=== PATIENT | male | born 1945 | race Caucasian/White ===

== ENCOUNTER 2016-11-09 08:15 | Inpatient (IN) | payer MEDICARE, OTHER ==
--- NOTE | 2016-11-09 08:27 | Emergency Department Record ---
History of Present Illness - General Stated Complaint: WEAKNESS Time Seen by Provider: 11/09/16 08:18 Source: Patient, EMS Mode of Arrival: Stretcher Limitations: Altered mental status - History of Present Illness Initial comments: 71 yo male presents to ED with a CC of weakness this morning. Patient was found laying in his mobile home this morning, unable to get up. EMS per family reports fevers, chills, and recent illness. Patient was seen yesterday in [facility] for "sore throat", diagnosed with Bronchitis. Patient appears mildly confused on examination, history is limited. Patient reports that he is here for a "blood clot", diagnosed with DVT 6 months ago and on Coumadin per EMS. -: Unknown Improves with: None Worsens with: None - [place] Coma Scale Eye Response: (4) Open spontaneously Motor Response: (6) Obeys commands Verbal Response: (4) Confused conversation [place] Total: 14 - Related Data Home Medications Medication Instructions Recorded Confirmed Last Taken Chlordiazepoxide HCl [Librium] 10 mg PO DAILY 04/05/16 11/09/16 Unknown Fenofibrate Nanocrystallized 145 mg PO ASDIR 04/05/16 11/09/16 Unknown [Fenofibrate] Lidocaine Patch [Lidoderm] 1 ea TOP DAILY 04/05/16 11/09/16 Unknown Omeprazole 40 mg PO DAILY 04/05/16 11/09/16 Unknown Oxycodone HCl/Acetaminophen 1 tab PO Q8H PRN 04/05/16 11/09/16 Unknown [Oxycodone/Acetaminophen 10mg/325mg] Quetiapine Fumarate [Seroquel] 100 mg PO QHS 04/05/16 11/09/16 Unknown Ranitidine HCl [Zantac] 300 mg PO DAILY 04/05/16 11/09/16 Unknown [place]-3 Fatty Acids [Fish Oil] 300 mg PO QD cap 11/08/16 11/09/16 Unknown Warfarin Sodium 5 mg PO DAILY #90 11/08/16 11/09/16 Unknown Allergies Allergy/AdvReac Type Severity Reaction Status Date / Time prochlorperazine AdvReac lock jaw Unverified 11/08/16 17:47 [From Compazine] prochlorperazine edisylate AdvReac lock jaw Unverified 11/08/16 17:47 [From Compazine] prochlorperazine maleate AdvReac lock jaw Unverified 11/08/16 17:47 [From Compazine] Review of Systems ROS unobtainable: Due to mental status Constitutional: Reports: Chills, Fever Respiratory: Reports: Cough Past Medical History - SOCIAL HISTORY Smoking Status: Never smoker Drug Use: None - RESPIRATORY Hx Respiratory Disorders: No - CARDIOVASCULAR Hx Cardio Disorders: Yes Hx Hypertension: Yes - NEURO Hx Neuro Disorders: No - GI Hx GI Disorders: No - Hx Genitourinary Disorders: No - ENDOCRINE Hx Endocrine Disorders: No - MUSCULOSKELETAL Hx Musculoskeletal Disorders: Yes Hx Arthritis: Yes - PSYCH Hx Psych Problems: No - HEMATOLOGY/ONCOLOGY Hx Hematology/Oncology Disorders: No Family Medical History Hx Alcohol Use: Father, Mother, Brother/Sister Hx Heart Disease: Mother Physical Exam - General General Appearance: Alert, Cooperative, Mild distress Limitations: Altered mental status - Head Head exam: Atraumatic, Normocephalic, Normal inspection Head exam detail: negative: Abrasion, Contusion, Forbes's sign, General tenderness, Hematoma, Laceration - Eye Eye exam: Normal appearance. negative: Conjunctival injection, Periorbital swelling, Periorbital tenderness, Scleral icterus - ENT Ear exam: negative: Auricular hematoma, Auricular trauma Nasal Exam: negative: Active bleeding, Discharge, Dried blood, Foreign body Mouth exam: negative: Drooling, Laceration, Muffled voice, Tongue elevation - Neck Neck exam: Normal inspection. negative: Meningismus, Tenderness - Respiratory Respiratory exam: Normal lung sounds bilaterally. negative: Rales, Respiratory distress, Rhonchi, Stridor - Cardiovascular Cardiovascular Exam: Regular rate, Normal rhythm, Normal heart sounds - GI/Abdominal GI/Abdominal exam: Soft. negative: Rebound, Rigid, Tenderness - Rectal Rectal exam: Deferred - exam: Deferred - Extremities Extremities exam: Other (Right calf appears slightly large than the left on examination, non-tender to palpation on examination.). negative: Calf tenderness - Back Back exam: Denies: CVA tenderness (R), CVA tenderness (L) - Neurological Neurological exam: Alert. negative: Motor sensory deficit - Psychiatric Psychiatric exam: Normal affect, Normal mood - Skin Skin exam: Normal color. negative: Abrasion Type of lesion: negative: abrasion Course - Reevaluation(s) Reevaluation #1: 11/09/16 08:42 EKG: Sinus Tachycardia Normal axis, normal intervals No acute ST-T wave changes Reevaluation #2: 11/09/16 09:36 Labs reviewed, UA contains 3+ bacteria, INR 2.69. Creatinine 1.4. Labs are otherwise grossly unremarkable for an acute process. Reevaluation #3: 11/09/16 10:14 Chest x-ray: Negative Reevaluation #4: 11/09/16 10:26 CT Brain: Generalized atrophy, nothing acute. Rocephin initiated for UTI with fever, cultures obtained, will admit for further evaluation. Reevaluation #5: 11/09/16 10:31 Case was discussed with Gabriella Cavazos, will accept admission. Medical Decision Making - Lab Data Result diagrams: 11/09/16 08:50 11/09/16 08:50 Disposition Disposition: Admit Clinical Impression: UTI (urinary tract infection) Qualifiers: Urinary tract infection type: acute cystitis Hematuria presence: with hematuria Qualified Code(s): N30.01 - Acute cystitis with hematuria Fever Qualifiers: Fever type: unspecified Qualified Code(s): R50.9 - Fever, unspecified Altered mental status Qualifiers: Altered mental status type: unspecified Qualified Code(s): R41.82 - Altered mental status, unspecified Disposition: Still a Patient at [facility] Decision to Admit: Admit from ER Decision to Admit Date: 11/09/16 Decision to Admit Time: 10:28 Time of Disposition: 10:28
[2016-11-09] MEDS ORDERED: 0.9 % SODIUM CHLORIDE 1000ML 1,000 ML IV SCH (08:30)
[2016-11-09 09:01] LABS: URINE APPEARANCE CLEAR; URINE BILIRUBIN NEGATIVE (NEGATIVE); URINE BLOOD LARGE (NEGATIVE); URINE COLOR YELLOW; URINE GLUCOSE (UA) NEGATIVE (NEGATIVE); URINE KETONE NEGATIVE (NEGATIVE); URINE LEUKOCYTE ESTERASE NEGATIVE (NEGATIVE); URINE NITRITE NEGATIVE (NEGATIVE); URINE PROTEIN NEGATIVE (NEGATIVE)
[2016-11-09 09:02] LABS: BASO % 0.3 % (0-6); EOS % 1.2 % (0-6); HEMATOCRIT 38.8 % (42.0-52.0); HEMOGLOBIN 13.2 gm/dl (14.0-18.0); LYMPH % 10.3 % (16-45); MEAN CELL VOLUME 93.3 fl (81-97); MEAN CORPUSCULAR HEMOGLOBIN 31.7 pg (27-33); MEAN PLATELET VOLUME 9.1 fl (7.4-10.4); MONO % 9.2 % (0-9); PLATELET COUNT 222 K/uL (130-400); RED BLOOD COUNT 4.16 M/uL (4.40-5.70); RED CELL DISTRIBUTION WIDTH 13.4 % (11.5-14.5); WHITE BLOOD COUNT W/O DIFF 7.8 K/uL (4.2-12.2)
[2016-11-09 09:11] LABS: INR 2.69; PROTHROMBIN TIME (PATIENT) 30.4 SECONDS (9.5-12.1)
[2016-11-09 09:17] LABS: URINE RENAL EPITHELIAL CELLS 0 - 2 /hpf; URINE WBC 0 - 2 (0-2/hpf)
[2016-11-09 09:18] LABS: ALB/GLOB RATIO 1.3 (1.1-1.8); ALBUMIN 4.2 gm/dL (3.5-5.0); ALKALINE PHOSPHATASE 43 U/L (38-126); ALT/SGPT 38 U/L (21-72); ANION GAP 7.9 (7-16); AST/SGOT 40 U/L (17-59); BILIRUBIN,TOTAL 0.53 mg/dL (0.2-1.3); BLOOD UREA NITROGEN 16 mg/dL (9-20); CARBON DIOXIDE 27.1 mmol/L (22-30); CREATINE PHOSPHOKINASE 88 U/L (55-170); CREATININE 1.4 mg/dL (0.66-1.25); EST GLOMERULAR FILTRATION RATE 53 ml/min; GLUCOSE,RANDOM 116 mg/dL (70-110); TOTAL PROTEIN 7.4 gm/dL (6.3-8.2); URINE BACTERIA 3+
[2016-11-09] MEDS ORDERED: ACETAMINOPHEN 500 MG TABLET PO ONE (09:20)
[2016-11-09 09:30] LABS: TROPONIN I < 0.012 ng/mL (0.00-0.034)
[2016-11-09] MEDS ORDERED: CEFTRIAXONE SODIUM 1 GM in 0.9 % SODIUM CHLORIDE 100ML 100 ML IVPB ONE (09:37)
[2016-11-09] MEDS ORDERED: ALBUTEROL SULFATE (0.083%) 2.5 MG/3 ML NEB INH PRN (12:26)
[2016-11-09] MEDS ORDERED: ACETAMINOPHEN 500 MG TABLET PO PRN (12:26)
[2016-11-09] MEDS ORDERED: AZITHROMYCIN 250 MG TABLET PO SCH (13:30)
--- NOTE | 2016-11-09 14:41 | History & Physical ---
History of Present Illness - Date of Service Date of Service for History & Physical: 11/10/16 - History of Present Illness Admitting Diagnosis: UTI. Sepsis. Altered mental status. Warfarin-induced coaguloapthy. Dehydration. URI History of Present Illness: 71 yo male admitted for UTI. 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 patient seen in [facility] 11/08/16, treated with azithromycin for URI and d/c'd home. Patient found on the ground of his mobile home this morning, unable to get up secondary to weakness. Patient brought into the ER by EMS. upon presentation, temp 101.7, HR 107, BP 144/93, RR 22, O2 91% RA. CBC relatively normal, Cr 1.4 otherwise BMP negative. GFR: 53, INR 2.69, troponin neg. UA: large blood, 3 + bacteria. EKG: sinus tach. CXR: negative. Head CT: NAP. Blood cultures pending. Patient started on IVF's, IV Rocephin, Azithromycin and tylenol as needed for fever. Admitted for further medical management. According to ER report, patient w/ altered mental status on arrival. GCS: 14. EMS reports patient with weakness, fever, chills and recent illness. This afternoon, patient alert and oriented x 3. Patient states he was admitted following [facility] visit yesterday, however, patient's and myself explained to patient that he returned this morning by EMS. He did not loss consciousness. states he was lethargic at home. Patient states he feels much better this afternoon. Afebrile, no chills. He does admit to bright red blood coming from penis. this began once patient arrived to the ER. denies injury. no sanchez/catheter placed. he is anticoagulated. Denies h/o cancer, [place] , or CVA. Has lost 25 lb's over the past 6 months though this has been intentional. No abd pain, change in bowel function, rash, chest pain, sob, ear pain, dysphagia, n/v, or change in gait. + non productive cough, urinary frequency. non smoker. From [place], though has lived in [place] this winter. PCP: Dr. Robles ([place], [place]). 11/10/16: lying in bed comfortably. tolerated breakfast well. normal /GI function. penile bleeding reduced significantly. fever/chills improving. no abd pain, lightheadedness, dizziness, change in bowel function, n/v. + non productive cough, wheezing. LE doppler performed this morning. Travel Screening - Travel/Exposure Within Last 30 Days Have you traveled within the last 30 days?: No - Travel/Exposure Within Last Year Have you traveled outside the [place] in the last year?: No - Additonal Travel Details Have you been exposed to anyone with a communicable illness?: No - Travel Symptoms Symptom Screening: None Review of Systems Reviewed: No additional complaints except as noted below Constitutional: Denies: Chills, Fever Eyes: Reports: As per HPI. Denies: Eye discharge, Eye pain, Photophobia, Vision change ENT: Reports: As per HPI. Denies: Congestion, Dental pain, Ear pain, Epistaxis , Hearing loss, Throat pain Respiratory: Reports: Cough Cardiovascular: Reports: As per HPI. Denies: Arrhythmia, Chest pain, Dyspnea on exertion, Edema, Murmurs, Orthopnea, Palpitations, Paroxysmal nocturnal dyspnea, Rheumatic Fever, Syncope Endocrine: Reports: As per HPI. Denies: Fatigue, Heat or cold intolerance, Polydipsia, Polyuria Gastrointestinal: Reports: As per HPI. Denies: Abdominal pain, Constipation, Diarrhea, Hematemesis, Hematochezia, Melena, Nausea, Vomiting Genitourinary: Reports: As per HPI. Denies: Dysuria, Frequency, Hematuria, Incontinence, Retention, Testicular pain, Testicular mass, Urgency Musculoskeletal: Reports: As per HPI. Denies: Arthralgia, Back pain, Gout, Joint swelling, Myalgia, Neck pain Skin: Reports: As per HPI. Denies: Bruising, Change in color, Change in hair/ nails, Lesions, Pruritus, Rash Neurological: Reports: As per HPI. Denies: Abnormal gait, Confusion, Headache, Numbness, Paresthesias, Seizure, Tingling, Tremors, Vertigo, Weakness Psychiatric: Reports: As per HPI. Denies: Anxiety, Auditory hallucinations, Depression, Homicidal thoughts, Suicidal thoughts, Visual hallucinations Hematological/Lymphatic: Reports: As per HPI. Denies: Anemia, Blood Clots, Easy bleeding, Easy bruising, Swollen glands Past Medical History - SOCIAL HISTORY Smoking Status: Never smoker Alcohol Use: None Drug Use: None - RESPIRATORY Hx Respiratory Disorders: No Hx Sleep Apnea: Yes Comment:: states sleep apnea, no machine - CARDIOVASCULAR Hx Cardio Disorders: Yes Hx Hypertension: Yes - NEURO Hx Neuro Disorders: No - GI Hx GI Disorders: No Hx Reflux: Yes Hx Hiatal Hernia: Yes Hx Ulcer: Yes - Hx Genitourinary Disorders: No Comment:: currently has brigjht red blood dripping from penis, denies injury - ENDOCRINE Hx Endocrine Disorders: No Hx Diabetes: No Hx Thyroid Disease: No - MUSCULOSKELETAL Hx Musculoskeletal Disorders: Yes Hx Arthritis: Yes Comment:: history blood clots rt leg, mar and jun 2016 - PSYCH Hx Psych Problems: No - HEMATOLOGY/ONCOLOGY Hx Hematology/Oncology Disorders: No Comment:: 1966 [place] blood transfusion Family Medical History Any Significant Family History?: Yes Hx Alcohol Use: Father, Mother, Brother/Sister Hx Heart Disease: Mother H&P Meds/Allergies - Allergies Allergies: Allergies Allergy/AdvReac Type Severity Reaction Status Date / Time prochlorperazine AdvReac lock jaw Unverified 11/08/16 17:47 [From Compazine] prochlorperazine edisylate AdvReac lock jaw Unverified 11/08/16 17:47 [From Compazine] prochlorperazine maleate AdvReac lock jaw Unverified 11/08/16 17:47 [From Compazine] - Home Medications Home Medications Medication Instructions Recorded Confirmed Last Taken Chlordiazepoxide HCl [Librium] 10 mg PO DAILY 04/05/16 11/09/16 Unknown Fenofibrate Nanocrystallized 145 mg PO ASDIR 04/05/16 11/09/16 Unknown [Fenofibrate] Lidocaine Patch [Lidoderm] 1 ea TOP DAILY 04/05/16 11/09/16 Unknown Omeprazole 40 mg PO DAILY 04/05/16 11/09/16 Unknown Oxycodone HCl/Acetaminophen 1 tab PO Q8H PRN 04/05/16 11/09/16 Unknown [Oxycodone/Acetaminophen 10mg/325mg] Quetiapine Fumarate [Seroquel] 100 mg PO QHS 04/05/16 11/09/16 Unknown Ranitidine HCl [Zantac] 300 mg PO DAILY 04/05/16 11/09/16 Unknown [place]-3 Fatty Acids [Fish Oil] 300 mg PO QD cap 11/08/16 11/09/16 Unknown Warfarin Sodium 5 mg PO DAILY #90 11/08/16 11/09/16 Unknown - Active Medications Active Medications: Current Medications Acetaminophen (Tylenol 500mg Tab) 1,000 mg PO Q6H PRN PRN Reason: PAIN/TEMP Albuterol Sulfate () 2.5 mg INH RESP.Q2H PRN PRN Reason: DIFFICULTY IN BREATHING Albuterol/Ipratropium (Duoneb) 3 ml INH RESP.Q4H PRN PRN Reason: Wheezing Benzonatate (Tessalon) 100 mg PO TID PRN PRN Reason: COUGH Chlordiazepoxide HCl (Librium) 10 mg PO DAILY [facility] Sodium Chloride () 1,000 mls @ 125 mls/hr IV .Q8H PRN PRN Reason: LARGE VOLUME IV Ciprofloxacin Lactate 400 mg/ (Glucose) 200 mls @ 200 mls/hr IVPB Q12H [facility] Stop: 11/16/16 14:31 Oxycodone/Acetaminophen (Percocet 10-325 Mg Tablet) 1 each PO Q8H PRN PRN Reason: Pain - General Patient Own Med: (Fenofibrate 145 Mg) 1 each PO DAILY [facility] Patient Own Med: (Omeprazole 40 Mg) 1 each PO DAILY [facility] Quetiapine Fumarate (Seroquel) 100 mg PO QHS [facility] Ranitidine HCl (Zantac) 300 mg PO QHS [facility] Warfarin Sodium (Coumadin) 5 mg PO Q48H [facility] Warfarin Sodium (Coumadin) 2.5 mg PO QHS [facility] Physical Exam - Vital Signs Vital Signs: Vital Signs - Last 24 Hrs Temp Pulse Pulse Resp BP BP Pulse Ox 11/09/16 12:53 100.7 F H 108 H 18 126/68 95 11/09/16 12:50 102.5 F H 110 H 20 128/73 94 L - General General Appearance: Alert, Cooperative, No acute distress Limitations: Altered mental status - Head Head exam: Atraumatic, Normocephalic, Normal inspection Head exam detail: negative: Abrasion, Contusion, Forbes's sign, General tenderness, Hematoma, Laceration - Eye Eye exam: Normal appearance. negative: Conjunctival injection, Periorbital swelling, Periorbital tenderness, Scleral icterus - ENT Ear exam: negative: Auricular hematoma, Auricular trauma Nasal Exam: negative: Active bleeding, Discharge, Dried blood, Foreign body Mouth exam: negative: Drooling, Laceration, Muffled voice, Tongue elevation - Neck Neck exam: Normal inspection. negative: Meningismus, Tenderness - Respiratory Respiratory exam: Normal lung sounds bilaterally. negative: Rales, Respiratory distress, Rhonchi, Stridor - Cardiovascular Cardiovascular Exam: Regular rate, Normal rhythm, Normal heart sounds - GI/Abdominal GI/Abdominal exam: Soft. negative: Rebound, Rigid, Tenderness - Rectal Rectal exam: Deferred - exam: Deferred - Extremities Extremities exam: Other (Right calf appears slightly large than the left on examination, non-tender to palpation on examination.). negative: Calf tenderness - Back Back exam: Denies: CVA tenderness (R), CVA tenderness (L) - Neurological Neurological exam: Alert. negative: Motor sensory deficit - Psychiatric Psychiatric exam: Normal affect, Normal mood - Skin Skin exam: Normal color. negative: Abrasion Type of lesion: negative: abrasion Results - Labs Result Diagrams: 11/10/16 05:55 11/10/16 05:55 VTE H&P Assessment - Risk for VTE Risk for VTE: No Risk Level: Moderate Risk Assessment Date: 11/09/16 Risk Assessment Time: 14:00 VTE Orders Placed or Will Be Placed: Yes Plan - Inpatient Certification Inpatient Certification: Admit to inpatient care: Based on my medical assessment, after consideration of patient's risk factors (age, co-morbidities and patient presenting symptoms and acuity), I expect that this patient will remain in the hospital greater than or equal to two midnights and that the services needed warrant inpatient care because: Patient Risk Factors: [fever, altered mental status, infection, weakness] Estimated length of stay: [48-72 hours] The patient may reasonably be expected to be discharged or transferred to a hospital within 96 hours after admission to [facility]. Services needed: [cardiology consult, PT/OT, IV antibiotics, cardiac monitoring , frequent blood checks] Post hospital care (if known): [home, self care] I certify that my determination is in accordance with my understanding of Medicare requirements for reasonable and necessary inpatient services. 11/09/16 18:03 - Detailed Diagnosis and Plan (1) UTI (urinary tract infection) Current Visit: Yes Status: Acute Qualifiers: Urinary tract infection type: acute cystitis Hematuria presence: with hematuria Qualified Code(s): N30.01 - Acute cystitis with hematuria Base Code: N39.0 - URINARY TRACT INFECTION, SITE NOT SPECIFIED Comment: 11/10/16: UA positive blood and 3+ bacteria. Cr 1.4. temp of 101.7 initially. SIRS criteria: temperature, HR >100, RR 22, source of infection. d/c azithromycin and rocephin. initiate IV Cipro. continue IVF's. anti pyrectics prn for temp monitor urinary output. await final blood cultures consider urology consult as outpatient (2) Bleeding of penis Current Visit: Yes Status: Acute Base Code: N50.1 - VASCULAR DISORDERS OF MALE GENITAL ORGANS Comment: 11/09/16: i suspect related to infection. Cardiology consulted re anticoagulation management. will hold coumadin. may need to reverse if bleeding does not subside. dopplers of lower extremity to evaluate for dvt monitor vitals, H/H, symptoms of lightheadedness/dizziness. urology consult as outpatient (3) DVT prophylaxis Current Visit: Yes Status: Acute Base Code: [id number] - Comment: 11/09/16: moderate risk noting h/o dvt/PE. noting bleeding, will hold coumadin. (4) Full code status Current Visit: Yes Status: Acute Base Code: Z78.9 - OTHER SPECIFIED HEALTH STATUS Comment: 11/09/16: full code status (5) Bronchitis Current Visit: Yes Status: Acute Base Code: J40 - BRONCHITIS, NOT SPECIFIED ACUTE OR CHRONIC Comment: 11/10/16: CXR negative. non productive cough with wheezing. Will start 50 mg of prednisone daily x 5 days. Respiratory therapy asked to evaluate patient. duo neb treatment TID. tessalon perle as needed for cough. await final blood culture results. repeat CXR tomorrow. Resp viral panel ordered.
[2016-11-09] MEDS: CIPROFLOXACIN LACTATE/D5W 400 MG in DEXTROSE 1 BAG IVPB SCH (15:17)
[2016-11-09] MEDS: CHLORDIAZEPOXIDE 10 MG CAPSULE PO SCH (15:22)
[2016-11-09] MEDS: PATIENT OWN MED: OMEPRAZOLE 40 MG PO SCH (15:23)
[2016-11-09] MEDS: PATIENT OWN MED: FENOFIBRATE 145 MG PO SCH (15:23)
[2016-11-09] MEDS ORDERED: PHYTONADIONE 5 MG TABLET PO ONE (18:14)
[2016-11-09] MEDS: RANITIDINE HCL 150 MG TABLET PO SCH (22:00)
[2016-11-09] MEDS ORDERED: CEFTRIAXONE SODIUM 1 GM in 0.9 % SODIUM CHLORIDE 100ML 100 ML IVPB SCH (22:00)
[2016-11-09] MEDS ORDERED: WARFARIN 5 MG TAB PO SCH (22:00)
[2016-11-09] MEDS: QUETIAPINE FUMARATE 100 MG TABLET PO SCH (22:00)
[2016-11-09] MEDS: GUAIFENESIN 1,200 MG TABLET PO PRN (22:01)
[2016-11-10] MEDS: CIPROFLOXACIN LACTATE/D5W 400 MG in DEXTROSE 1 BAG IVPB SCH ×2 (02:06→15:21)
[2016-11-10 06:02] LABS: BASO % 0.2 % (0-6); EOS % 0.4 % (0-6); GRAN % 71.7 % (47-80); HEMATOCRIT 38.3 % (42.0-52.0); HEMOGLOBIN 13.1 gm/dl (14.0-18.0); LYMPH % 17.5 % (16-45); MEAN CELL VOLUME 93.2 fl (81-97); MEAN CORPUSCULAR HGB CONC 34.2 g/dl (32-36); MEAN PLATELET VOLUME 8.7 fl (7.4-10.4); MONO % 10.2 % (0-9); PLATELET COUNT 190 K/uL (130-400); RED BLOOD COUNT 4.11 M/uL (4.40-5.70); RED CELL DISTRIBUTION WIDTH 13.7 % (11.5-14.5); WHITE BLOOD COUNT W/O DIFF 5.7 K/uL (4.2-12.2)
[2016-11-10 06:04] LABS: MEAN CORPUSCULAR HEMOGLOBIN 31.8 pg (27-33)
[2016-11-10 06:14] LABS: INR 1.65; PROTHROMBIN TIME (PATIENT) 18.6 SECONDS (9.5-12.1)
[2016-11-10 06:16] LABS: ANION GAP 6.9 (7-16); BLOOD UREA NITROGEN 13 mg/dL (9-20); CARBON DIOXIDE 23.1 mmol/L (22-30); CREATININE 1.1 mg/dL (0.66-1.25); EST GLOMERULAR FILTRATION RATE > 60 ml/min; GLUCOSE,RANDOM 100 mg/dL (70-110)
--- NOTE | 2016-11-10 07:27 | CT SCAN REPORT ---
EXAM: HEAD CT WITHOUT CONTRAST HISTORY: LETHARGY, WEAKNESS IN LEGS, DISORIENTATION FOR TWENTY-FOUR HOURS. TECHNIQUE: Contiguous axial images from the cerebral convexities to the foramen magnum were obtained without IV contrast. Comparison: None. Encounter: Initial. Hand dominance: Right. FINDINGS: Mild generalized atrophy of the brain. No acute intracranial hemorrhage, mass effect, or midline shift. No CT evidence of large acute territorial infarct. The ventricles, basal cisterns and sulci are within normal limits. Moderate calcification of the internal carotid arteries. The osseous structures and paranasal sinuses are unremarkable. IMPRESSION: 1. NO ACUTE INTRACRANIAL PROCESS. 2. MODERATE CALCIFICATION OF THE INTERNAL CAROTID ARTERIES. JOB NUMBER: [id number] [facility]
--- NOTE | 2016-11-10 07:29 | RADIOLOGY REPORT ---
EXAM: CHEST, TWO VIEWS HISTORY: ACUTE CONFUSION AND NONPRODUCTIVE COUGH. TECHNIQUE: Two views of the chest were obtained. Comparison: None. FINDINGS: The frontal view is compromised due to lordotic positioning and poor penetration of lung bases. The lungs are clear. The cardiac silhouette, diaphragm, and osseous structures are unremarkable. IMPRESSION: NEGATIVE CHEST EXAMINATION. JOB NUMBER: [id number] [facility]
[2016-11-10] MEDS: OXYCODONE/APAP 10MG-325MG TABLET PO PRN ×2 (08:52→22:04)
[2016-11-10] MEDS ORDERED: LIDOCAINE 5% PATCH TOP SCH (10:00)
[2016-11-10] MEDS: PATIENT OWN MED: OMEPRAZOLE 40 MG PO SCH (10:36)
[2016-11-10] MEDS: PATIENT OWN MED: FENOFIBRATE 145 MG PO SCH (10:37)
[2016-11-10] MEDS: CEFTRIAXONE SODIUM 1 GM in 0.9 % SODIUM CHLORIDE 100ML 100 ML IVPB SCH ×2 (10:37→21:57)
[2016-11-10] MEDS: PREDNISONE 10 MG TAB PO SCH (10:37)
[2016-11-10] MEDS: GUAIFENESIN 1,200 MG TABLET PO PRN ×2 (10:39→21:58)
[2016-11-10] MEDS: CHLORDIAZEPOXIDE 10 MG CAPSULE PO SCH (10:43)
[2016-11-10] MEDS: IPRATROPIUM/ALBUTEROL (0.5MG/3MG) NEB INH PRN (11:00)
[2016-11-10] MEDS: BENZONATATE 100 MG CAPSULE PO PRN ×2 (15:23→21:58)
[2016-11-10] MEDS: IPRATROPIUM/ALBUTEROL (0.5MG/3MG) NEB INH SCH ×2 (16:24→22:44)
[2016-11-10] MEDS: 0.9 % SODIUM CHLORIDE 1000ML 1,000 ML IV PRN (16:36)
[2016-11-10] MEDS: RANITIDINE HCL 150 MG TABLET PO SCH (21:58)
[2016-11-10] MEDS: QUETIAPINE FUMARATE 100 MG TABLET PO SCH (21:58)
[2016-11-10] MEDS ORDERED: WARFARIN 2.5 MG TAB PO SCH (22:00)
[2016-11-11] MEDS: 0.9 % SODIUM CHLORIDE 1000ML 1,000 ML IV PRN ×3 (01:31→14:12)
[2016-11-11] MEDS: CIPROFLOXACIN LACTATE/D5W 400 MG in DEXTROSE 1 BAG IVPB SCH ×2 (01:31→15:08)
[2016-11-11 06:08] LABS: GRAN % 64.1 % (47-80); HEMATOCRIT 37.2 % (42.0-52.0); HEMOGLOBIN 12.4 gm/dl (14.0-18.0); LYMPH % 22.9 % (16-45); MEAN CELL VOLUME 93.7 fl (81-97); MEAN CORPUSCULAR HEMOGLOBIN 31.2 pg (27-33); MEAN CORPUSCULAR HGB CONC 33.3 g/dl (32-36); MEAN PLATELET VOLUME 8.6 fl (7.4-10.4); PLATELET COUNT 200 K/uL (130-400); RED BLOOD COUNT 3.97 M/uL (4.40-5.70); WHITE BLOOD COUNT W/O DIFF 4.9 K/uL (4.2-12.2)
[2016-11-11 06:18] LABS: ANION GAP 7.1 (7-16); BLOOD UREA NITROGEN 12 mg/dL (9-20); CARBON DIOXIDE 25.9 mmol/L (22-30); CREATININE 1.2 mg/dL (0.66-1.25); EST GLOMERULAR FILTRATION RATE > 60 ml/min; GLUCOSE,RANDOM 105 mg/dL (70-110)
[2016-11-11] MEDS: BENZONATATE 100 MG CAPSULE PO PRN ×2 (07:03→23:46)
--- NOTE | 2016-11-11 07:29 | US VENOUS DOPPLER REPORT ---
EXAM: RIGHT LOWER EXTREMITY DEEP VENOUS DOPPLER ULTRASOUND HISTORY: RIGHT THIGH SWELLING, HISTORY OF RIGHT LOWER EXTREMITY DEEP VENOUS THROMBOSIS, HE WAS TAKEN OFF BLOOD THINNERS DURING ADMISSION. TECHNIQUE: Real-time B-mode imaging with and without compression was used to evaluate the right lower extremity for deep venous thrombosis. Duplex Doppler with color and spectral Doppler was used. Comparison: None. FINDINGS: RIGHT COMMON FEMORAL VEIN: No DVT. RIGHT FEMORAL VEIN: Nonocclusive excentric thrombus in the proximal mid and distal portions of the vessel with incomplete compression although there is some augmentation of venous waveforms. RIGHT POPLITEAL VEIN: Excentric nonocclusive thrombus with incomplete compression. RIGHT PROXIMAL DEEP FEMORAL VEIN: Nonocclusive thrombus with incomplete compression. Right posterior tibial vein patent. Right peroneal vein patent. Right anterior tibial vein patient. IMPRESSION: NONOCCLUSIVE DVT INVOLVING THE RIGHT FEMORAL VEIN WELL THE RIGHT PROFUNDA FEMORAL VEIN AND POPLITEAL VEIN. JOB NUMBER: [id number] [facility]
[2016-11-11] MEDS: IPRATROPIUM/ALBUTEROL (0.5MG/3MG) NEB INH SCH ×4 (07:34→20:30)
[2016-11-11] MEDS: PREDNISONE 10 MG TAB PO SCH (08:14)
--- NOTE | 2016-11-11 10:09 | Physician Progress Note ---
Subjective - Date Date of Physician Progress Note: 11/11/16 - Subjective Subjective Comment: lying in bed comfortably. c/o fever/chills. temp has improved during stay. normal GI function. + urinary freq (every 45 mins per patient). no hematuria. yellow/white productive cough. cough decreasing. +wheezing. no new concerns. +influenza A LE doppler: chronic dvt Objective - Vital Signs Vital Signs: Vital Signs - Last 24 Hrs Temp Pulse Pulse Resp BP Pulse Ox 11/11/16 08:06 99 F 95 H 24 117/80 90 L 11/11/16 06:45 99.0 F 84 18 135/84 96 11/10/16 22:52 88 16 11/10/16 22:45 84 16 94 L 11/10/16 22:00 99.0 F 105 H 18 117/81 95 11/10/16 19:00 98.7 F 102 H 16 150/77 94 L 11/10/16 16:24 86 20 100 11/10/16 14:40 98.3 F 94 H 14 141/88 94 L 11/10/16 11:00 98 H 16 96 - General General Appearance: Alert, Oriented x3, Cooperative, No acute distress Limitations: Altered mental status - Head Head exam: Atraumatic, Normocephalic, Normal inspection Head exam detail: negative: Abrasion, Contusion, Forbes's sign, General tenderness, Hematoma, Laceration - Eye Eye exam: Normal appearance. negative: Conjunctival injection, Periorbital swelling, Periorbital tenderness, Scleral icterus - ENT Ear exam: negative: Auricular hematoma, Auricular trauma Nasal Exam: negative: Active bleeding, Discharge, Dried blood, Foreign body Mouth exam: negative: Drooling, Laceration, Muffled voice, Tongue elevation - Neck Neck exam: Normal inspection. negative: Meningismus, Tenderness - Respiratory Respiratory exam: Normal lung sounds bilaterally. negative: Rales, Respiratory distress, Rhonchi, Stridor - Cardiovascular Cardiovascular Exam: Regular rate, Normal rhythm, Normal heart sounds - GI/Abdominal GI/Abdominal exam: Soft. negative: Rebound, Rigid, Tenderness - Rectal Rectal exam: Deferred - exam: Deferred - Extremities Extremities exam: Other (Right calf appears slightly large than the left on examination, non-tender to palpation on examination.). negative: Calf tenderness - Back Back exam: Denies: CVA tenderness (R), CVA tenderness (L) - Neurological Neurological exam: Alert. negative: Motor sensory deficit - Psychiatric Psychiatric exam: Normal affect, Normal mood - Skin Skin exam: Normal color. negative: Abrasion Type of lesion: negative: abrasion Assessment and Plan - Assessment and Plan (1) UTI (urinary tract infection) Current Visit: Yes Status: Acute Qualifiers: Urinary tract infection type: acute cystitis Hematuria presence: with hematuria Qualified Code(s): N30.01 - Acute cystitis with hematuria Base Code: N39.0 - URINARY TRACT INFECTION, SITE NOT SPECIFIED Comment: 11/11/16: UA positive blood and 3+ bacteria. Cr normalized. temp 99. hematuria has resolved. Continue IV Cipro. IVFs decreased to 50 mls/hr. anti pyrectics prn for temp monitor urinary output. 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 has resolved. Cardiology consulted re anticoagulation management. recommended to hold/reverse anticoag on 11/09/16. Restart patient's normal coumadin dose 11/12/16. doppler of lower extremity: right chronic dvt monitor vitals, H/H, symptoms of lightheadedness/dizziness. urology consult as outpatient (3) DVT prophylaxis Current Visit: Yes Status: Acute Base Code: [id number] - Comment: 11/11/16: moderate risk noting h/o dvt/PE. noting bleeding, will hold coumadin until 11/12/16. (4) Full code status Current Visit: Yes Status: Acute Base Code: Z78.9 - OTHER SPECIFIED HEALTH STATUS Comment: 11/11/16: full code status (5) Bronchitis Current Visit: Yes Status: Acute Base Code: J40 - BRONCHITIS, NOT SPECIFIED ACUTE OR CHRONIC Comment: 11/11/16: CXR negative 11/09. non productive cough with wheezing. + influenza A. Will start 50 mg of prednisone daily x 5 days. duo neb treatment TID. tessalon perle as needed for cough. await final blood culture results- preliminary: gram + cocci. Rocephin initiate 11/10/16 to cover strep pneumo. repeat CXR later today. supplemental O2 as needed. Results - Labs Result Diagrams: 11/11/16 06:00 11/11/16 06:00 Labs Last 24 Hours: Laboratory Results - last 24 hr 11/10/16 11/11/16 11/11/16 11:27 06:00 06:00 WBC 4.9 RBC 3.97 L Hgb 12.4 L Hct 37.2 L MCV 93.7 MCH 31.2 MCHC 33.3 RDW 14.0 Plt Count 200 MPV 8.6 Gran % 64.1 Lymphocytes % 22.9 Monocytes % 13.0 H Eosinophils % 0.0 Basophils % 0.0 Sodium 144 Potassium 3.4 L Chloride 111 H Carbon Dioxide 25.9 Anion Gap 7.1 BUN 12 Creatinine 1.2 Estimated GFR > 60 Random Glucose 105 Calcium 8.3 L Influenza Type A (PCR) Detected H Influenza Type B (PCR) Not detected RSV (PCR) Not detected DVT/PE Assessment - Risk for VTE Risk for VTE: No Risk Level: Moderate Risk Assessment Date: 11/09/16 Risk Assessment Time: 14:00 VTE Orders Placed or Will Be Placed: Yes - Active Medicaitons Current Medications: Current Medications Acetaminophen (Tylenol 500mg Tab) 1,000 mg PO Q6H PRN PRN Reason: PAIN/TEMP Last Admin: 11/10/16 01:02 Dose: 1,000 mg Albuterol Sulfate () 2.5 mg INH RESP.Q2H PRN PRN Reason: DIFFICULTY IN BREATHING Albuterol/Ipratropium (Duoneb) 3 ml INH RESP.Q4H PRN PRN Reason: Wheezing Last Admin: 11/10/16 11:00 Dose: 3 ml Albuterol/Ipratropium (Duoneb) 3 ml INH TID MARVIN Last Admin: 11/11/16 07:34 Dose: 3 ml Benzonatate (Tessalon) 100 mg PO TID PRN PRN Reason: COUGH Last Admin: 11/11/16 07:03 Dose: 100 mg Chlordiazepoxide HCl (Librium) 10 mg PO DAILY MARVIN Last Admin: 11/10/16 10:43 Dose: 10 mg Guaifenesin (Mucinex) 1,200 mg PO BID PRN PRN Reason: Cold Symptons Last Admin: 11/10/16 21:58 Dose: 1,200 mg Sodium Chloride () 1,000 mls @ 125 mls/hr IV .Q8H PRN PRN Reason: LARGE VOLUME IV Last Admin: 11/11/16 01:31 Dose: 125 mls/hr Ciprofloxacin Lactate 400 mg/ (Glucose) 200 mls @ 200 mls/hr IVPB Q12H [facility] Stop: 11/16/16 14:31 Last Admin: 11/11/16 01:31 Dose: 200 mls/hr Ceftriaxone Sodium 1 gm/ (Sodium Chloride) 100 mls @ 200 mls/hr IVPB Q12H [facility] Stop: 11/15/16 10:01 Last Admin: 11/10/16 21:57 Dose: 200 mls/hr Oseltamivir Phosphate (Tamiflu) 75 mg PO BID [facility] Stop: 11/16/16 10:01 Oxycodone/Acetaminophen (Percocet 10-325 Mg Tablet) 1 each PO Q8H PRN PRN Reason: Pain - General Last Admin: 11/10/16 22:04 Dose: 1 each Patient Own Med: (Fenofibrate 145 Mg) 1 each PO DAILY [facility] Last Admin: 11/10/16 10:37 Dose: 1 each Patient Own Med: (Omeprazole 40 Mg) 1 each PO DAILY [facility] Last Admin: 11/10/16 10:36 Dose: 1 each Prednisone (Prednisone 10mg) 50 mg PO DAILYWM [facility] Stop: 11/16/16 10:01 Last Admin: 11/11/16 08:14 Dose: 50 mg Quetiapine Fumarate (Seroquel) 100 mg PO QHS [facility] Last Admin: 11/10/16 21:58 Dose: 100 mg Ranitidine HCl (Zantac) 300 mg PO QHS [facility] Last Admin: 11/10/16 21:58 Dose: 300 mg AMI Plan - Labs Result Diagrams: 11/11/16 06:00 11/11/16 06:00
[2016-11-11] MEDS: CHLORDIAZEPOXIDE 10 MG CAPSULE PO SCH (10:15)
[2016-11-11] MEDS: PATIENT OWN MED: FENOFIBRATE 145 MG PO SCH (10:16)
[2016-11-11] MEDS: PATIENT OWN MED: OMEPRAZOLE 40 MG PO SCH (10:17)
[2016-11-11] MEDS: CEFTRIAXONE SODIUM 1 GM in 0.9 % SODIUM CHLORIDE 100ML 100 ML IVPB SCH ×3 (10:17→21:02)
[2016-11-11] MEDS: OSTELTAMIVIR 75 MG CAP PO SCH ×3 (10:17→21:02)
[2016-11-11] MEDS: QUETIAPINE FUMARATE 100 MG TABLET PO SCH ×2 (20:54→21:02)
[2016-11-11] MEDS: RANITIDINE HCL 150 MG TABLET PO SCH ×2 (20:55→21:02)
[2016-11-12] MEDS: CIPROFLOXACIN LACTATE/D5W 400 MG in DEXTROSE 1 BAG IVPB SCH (02:13)
[2016-11-12 06:19] LABS: BASO % 0.2 % (0-6); EOS % 1.9 % (0-6); GRAN % 46.8 % (47-80); HEMATOCRIT 36.4 % (42.0-52.0); HEMOGLOBIN 12.5 gm/dl (14.0-18.0); LYMPH % 38.3 % (16-45); MEAN CELL VOLUME 93.3 fl (81-97); MEAN CORPUSCULAR HGB CONC 34.3 g/dl (32-36); MEAN PLATELET VOLUME 9.8 fl (7.4-10.4); MONO % 12.8 % (0-9); PLATELET COUNT 101 K/uL (130-400); RED CELL DISTRIBUTION WIDTH 13.7 % (11.5-14.5); WHITE BLOOD COUNT W/O DIFF 4.2 K/uL (4.2-12.2)
[2016-11-12 06:33] LABS: ANION GAP 7.6 (7-16); BLOOD UREA NITROGEN 14 mg/dL (9-20); CARBON DIOXIDE 23.4 mmol/L (22-30); EST GLOMERULAR FILTRATION RATE > 60 ml/min; GLUCOSE,RANDOM 95 mg/dL (70-110)
--- NOTE | 2016-11-12 07:17 | RADIOLOGY REPORT ---
EXAM: CHEST, TWO VIEWS HISTORY: DIFFICULTY IN BREATHING. TECHNIQUE: Frontal and lateral views of the chest were performed. FINDINGS: The heart size is normal. The lung caraballo are clear. No infiltrate or pleural effusion. The osseous structures are normal. IMPRESSION: NEGATIVE CHEST EXAMINATION. JOB NUMBER: [id number] MTDD
[2016-11-12] MEDS: PREDNISONE 10 MG TAB PO SCH (07:57)
[2016-11-12] MEDS: CHLORDIAZEPOXIDE 10 MG CAPSULE PO SCH (09:58)
[2016-11-12] MEDS: CEFTRIAXONE SODIUM 1 GM in 0.9 % SODIUM CHLORIDE 100ML 100 ML IVPB SCH (09:59)
[2016-11-12] MEDS ORDERED: POTASSIUM CHLORIDE 20 MEQ TABLET PO SCH (10:00)
[2016-11-12] MEDS: PATIENT OWN MED: OMEPRAZOLE 40 MG PO SCH (10:01)
[2016-11-12] MEDS: PATIENT OWN MED: FENOFIBRATE 145 MG PO SCH (10:01)
[2016-11-12] MEDS: OSTELTAMIVIR 75 MG CAP PO SCH (10:01)
[2016-11-12] MEDS: IPRATROPIUM/ALBUTEROL (0.5MG/3MG) NEB INH SCH (11:18)
--- NOTE | 2016-11-12 11:44 | Discharge Summary ---
Providers Discharge Summary Date: 11/12/16 Date of admission: 11/09/16 12:05 Expected Date of Discharge: 11/12/16 Attending physician: ZEYAD RIVAS Primary care physician: IQRA RENTERIA D.O. Consults: Consult Orders 11/09/16 13:47 Consult - Cardiology NOW Consulting Provider: BRITTNI ULLOA Physician Instructions: Reason For Exam: anticoagulation necessary? 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?: Unknown Physical Exam - Vital Signs Vital Signs: Vital Signs - Last 24 Hrs Temp Pulse Pulse Resp BP Pulse Ox 11/12/16 08:19 97.7 F 81 20 118/83 98 11/12/16 06:00 97.9 F 83 20 138/85 94 L 11/12/16 00:05 98.1 F 92 H 20 128/90 94 L 11/11/16 21:01 98.4 F 92 H 20 147/85 95 11/11/16 21:00 92 H 20 11/11/16 18:00 99 F 93 H 20 110/84 91 L 11/11/16 15:02 84 18 11/11/16 14:00 97.9 F 104 H 24 138/85 92 L - General General Appearance: Alert, Oriented x3, Cooperative, No acute distress Limitations: Altered mental status - Head Head exam: Atraumatic, Normocephalic, Normal inspection Head exam detail: negative: Abrasion, Contusion, Forbes's sign, General tenderness, Hematoma, Laceration - Eye Eye exam: Normal appearance. negative: Conjunctival injection, Periorbital swelling, Periorbital tenderness, Scleral icterus - ENT Ear exam: negative: Auricular hematoma, Auricular trauma Nasal Exam: negative: Active bleeding, Discharge, Dried blood, Foreign body Mouth exam: negative: Drooling, Laceration, Muffled voice, Tongue elevation - Neck Neck exam: Normal inspection. negative: Meningismus, Tenderness - Respiratory Respiratory exam: Normal lung sounds bilaterally. negative: Rales, Respiratory distress, Rhonchi, Stridor - Cardiovascular Cardiovascular Exam: Regular rate, Normal rhythm, Normal heart sounds - GI/Abdominal GI/Abdominal exam: Soft. negative: Rebound, Rigid, Tenderness - Rectal Rectal exam: Deferred - exam: Deferred - Extremities Extremities exam: Other (Right calf appears slightly large than the left on examination, non-tender to palpation on examination.). negative: Calf tenderness - Back Back exam: Denies: CVA tenderness (R), CVA tenderness (L) - Neurological Neurological exam: Alert. negative: Motor sensory deficit - Psychiatric Psychiatric exam: Normal affect, Normal mood - Skin Skin exam: Normal color. negative: Abrasion Type of lesion: negative: abrasion Hospitalization - Hospitalization Admission Diagnosis: UTI. Sepsis. Altered mental status. Warfarin-induced coaguloapthy. Dehydration. URI - Problem List/Discharge Diagnosis (1) UTI (urinary tract infection) Current Visit: Yes Status: Acute Discharge Diagnosis: Urinary tract infection type: acute cystitis Hematuria presence: with hematuria Qualified Code(s): N30.01 - Acute cystitis with hematuria Base Code: N39.0 - URINARY TRACT INFECTION, SITE NOT SPECIFIED Comment: 11/12/16: UA positive blood and 3+ bacteria. normal kidney function. afebrile hematuria has resolved. preliminary BC's: enterococcus two additional BC's obtained today- patient will follow up with his PCP re final results. Amoxicillin 500 mg TID x 10 days potassium decreased to 3.3. 20 mEq of potassium chloride given. recheck labs (CBC, BMP) 1-2 days prior to appt with primary provider anti pyrectics prn for temp patient has primary provider TuesdayNovember 16 at 1400. urology consult as outpatient highly encouraged (2) Bleeding of penis Current Visit: Yes Status: Acute Base Code: N50.1 - VASCULAR DISORDERS OF MALE GENITAL ORGANS Comment: 11/12/16: i suspect related to infection. This has resolved- patient denies hematuria for 3 days now. - Cardiology consulted during admission re anticoagulation management. Advised by Dr. Ulloa, to hold anticoag /reverse INR on 11/09/16 and restart patient's normal coumadin dose 11/12/16 if bleeding has resolved. Doppler of lower extremity: right chronic dvt -urinary frequency has improved. -preliminary blood cultures demonstrate enterococcus. patient will be sent home on Amoxicillin 500 mg TID x 10 days. -Urology consult as outpatient high encouraged. Patient agree's to discuss this further with his primary provider. (3) Bronchitis Current Visit: Yes Status: Acute Base Code: J40 - BRONCHITIS, NOT SPECIFIED ACUTE OR CHRONIC Comment: 11/12/16: CXR negative 11/09 & 11/11. + influenza A. negative RSV. non productive cough with wheezing. -Will complete 5 days of steroid treatment (50 mg of Prednisone daily) -duo neb treatment TID. -tessalon perle as needed for cough. -Tamiflu 75 mg BID x 5 days. -preliminary blood cultures demonstrate enterococcus. Two additional blood cultures drawn today. - he will be started on Amoxicillin 500 mg three time daily x 10 days. (4) DVT (deep venous thrombosis) Current Visit: Yes Status: Acute Base Code: I82.409 - ACUTE EMBOLISM AND THOMBOS UNSP DEEP VN UNSP LOWER EXTREMITY Comment: 11/12/16: right lower extremity doppler reveals chronic dvt. Cardiology consulted to address anticoagulation therapy. As advised, INR reversed/anticoagulation held 11/09/16 due to hematuria. Hematuria has now resolved. Patient's normal home coumadin dose will be restarted today. He will continue to follow with the [facility] in [place], [place] along with his primary provider, Dr. Renteria. Patient agree's to return to the ED in the meantime re any new or worsening symptoms such as blood in urine or stool, weakness, SOB/MARY, hematuria, fever > 102, or dizziness/lightheadedness. (5) Full code status Current Visit: Yes Status: Acute Base Code: Z78.9 - OTHER SPECIFIED HEALTH STATUS Comment: 11/12/16: patient remained full code status during admission - Hospitalization Course Disposition: Home, Self-Care Hospital Course: 71 yo male admitted for UTI. 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 patient seen in [facility], [place] 11/08/16, treated with azithromycin for URI and d/c'd home. Patient found on the ground of his mobile home this morning, unable to get up secondary to weakness. Patient brought into the ER by EMS. upon presentation, temp 101.7, HR 107, BP 144/93, RR 22, O2 91% RA. CBC relatively normal, Cr 1.4 otherwise BMP negative. GFR: 53, INR 2.69, troponin neg. UA: large blood, 3 + bacteria. EKG: sinus tach. CXR: negative. Head CT: NAP. Blood cultures pending. Patient started on IVF's, IV Rocephin, Azithromycin and tylenol as needed for fever. Admitted for further medical management. According to ER report, patient w/ altered mental status on arrival. GCS: 14. EMS reports patient with weakness, fever, chills and recent illness. This afternoon, patient alert and oriented x 3. Patient states he was admitted following [facility] yesterday, however, patient's and myself explained to patient that he returned this morning by EMS. He did not loss consciousness. states he was lethargic at home. Patient states he feels much better this afternoon. Afebrile, no chills. He does admit to bright red blood coming from penis. this began once patient arrived to the ER. denies injury. no sanchez/catheter placed. he is anticoagulated. Denies h/o cancer, [place] , or CVA. Has lost 25 lb's over the past 6 months though this has been intentional. No abd pain, change in bowel function, rash, chest pain, sob, ear pain, dysphagia, n/v, or change in gait. + non productive cough, urinary frequency. non smoker. From [place], though has lived in [place] this winter. PCP: Dr. Renteria ([place], [place]). 11/10/16: lying in bed comfortably. tolerated breakfast well. normal /GI function. penile bleeding reduced significantly. fever/chills improving. no abd pain, lightheadedness, dizziness, change in bowel function, n/v. + non productive cough, wheezing. LE doppler performed this morning. 11/12/16: patient sitting up in bed comfortably. states he feels much improved. afebrile. urinary frequency has improved. normal GI function. tolerating meals. coughing improved. no sob. ambulating throughout the room w/o difficulty. Procedures: Imaging and X-Rays 11/10/16 07:00 VENOUS DOPPLER LOWER EXT RT [US] Urgent 11/11/16 09:50 CHEST 2 VIEWS [RAD] Stat Abnormal Labs: Abnormal Lab Results 11/10/16 11/10/16 11/10/16 Range/Units 05:55 05:55 05:55 RBC 4.11 L (4.40-5.70) M/uL Hgb 13.1 L (14.0-18.0) gm/dl Hct 38.3 L (42.0-52.0) % Plt Count (130-400) K/uL Gran % (47-80) % Monocytes % 10.2 H (0-9) % PT 18.6 H (9.5-12.1) SECONDS Potassium (3.5-5.1) mmol/L Chloride 112 H (98-107) mmol/L Anion Gap 6.9 L (7-16) Calcium (8.5-10.1) mg/dL Influenza Type A (PCR) (Not Detected) 11/10/16 11/11/16 11/11/16 Range/Units 11:27 06:00 06:00 RBC 3.97 L (4.40-5.70) M/uL Hgb 12.4 L (14.0-18.0) gm/dl Hct 37.2 L (42.0-52.0) % Plt Count (130-400) K/uL Gran % (47-80) % Monocytes % 13.0 H (0-9) % PT (9.5-12.1) SECONDS Potassium 3.4 L (3.5-5.1) mmol/L Chloride 111 H (98-107) mmol/L Anion Gap (7-16) Calcium 8.3 L (8.5-10.1) mg/dL Influenza Type A (PCR) Detected H (Not Detected) 11/12/16 11/12/16 Range/Units 06:05 06:05 RBC 3.90 L (4.40-5.70) M/uL Hgb 12.5 L (14.0-18.0) gm/dl Hct 36.4 L (42.0-52.0) % Plt Count 101 L (130-400) K/uL Gran % 46.8 L (47-80) % Monocytes % 12.8 H (0-9) % PT (9.5-12.1) SECONDS Potassium 3.3 L (3.5-5.1) mmol/L Chloride 113 H (98-107) mmol/L Anion Gap (7-16) Calcium (8.5-10.1) mg/dL Influenza Type A (PCR) (Not Detected) Condition at Discharge: (1) Good Discharge Medications - Discharge Medications Prescriptions: Amoxicillin [Amoxil] 500 mg PO TID #30 tab Ipratropium/Albuterol [Duoneb] 3 ml INH TID #90 ampul.neb Prednisone [Prednisone 10Mg] 50 mg PO DAILYWM #3 tab Albuterol Sulfate [Proair Hfa] 1 - 2 puff IH .EVERY 4-6 HOURS PRN #1 inhaler PRN Reason: Difficulty In Breathing Oseltamivir Phosphate [Tamiflu] 75 mg PO BID #7 capsule Home Medications: Ambulatory Orders Chlordiazepoxide HCl [Librium] 10 mg PO DAILY 04/05/16 [Last Taken Unknown] Fenofibrate Nanocrystallized [Fenofibrate] 145 mg PO ASDIR 04/05/16 [Last Taken Unknown] Lidocaine Patch [Lidoderm] 1 ea TOP DAILY 04/05/16 [Last Taken Unknown] Omeprazole 40 mg PO DAILY 04/05/16 [Last Taken Unknown] Oxycodone HCl/Acetaminophen [Oxycodone/Acetaminophen 10mg/325mg] 1 tab PO Q8H PRN 04/05/16 [Last Taken Unknown] Quetiapine Fumarate [Seroquel] 100 mg PO QHS 04/05/16 [Last Taken Unknown] Ranitidine HCl [Zantac] 300 mg PO DAILY 04/05/16 [Last Taken Unknown] [place]-3 Fatty Acids [Fish Oil] 300 mg PO QD cap 11/08/16 [Last Taken Unknown] Warfarin Sodium 5 mg PO DAILY #90 11/08/16 [Last Taken Unknown] Albuterol Sulfate [Proair Hfa] 1 - 2 puff IH .EVERY 4-6 HOURS PRN #1 inhaler [Last Taken Unknown] Amoxicillin [Amoxil] 500 mg PO TID #30 tab 11/12/16 [Last Taken Unknown] Ipratropium/Albuterol [Duoneb] 3 ml INH TID #90 ampul.neb 11/12/16 [Last Taken Unknown] Oseltamivir Phosphate [Tamiflu] 75 mg PO BID #7 capsule 11/12/16 [Last Taken Unknown] Prednisone [Prednisone 10Mg] 50 mg PO DAILYWM #3 tab 11/12/16 [Last Taken Unknown] Discharge Plan - Discharge Instructions Activity at Discharge: Increase Activity as Tolerated Diet at Discharge: Regular Diet Additional Instructions: clam picker prescriptions from pharmacy and take as directed. New medications: Prednisone 50 mg x 3 days Amoxicillin 500 mg three times daily x 10 days (please be sure to complete antibiotic course) Tampiflu 75 mg twice daily- complete all of this prescription as well. albuterol 1-2 puffs q 4-6 hours as needed to help breath wheezing. breathing treatment- Duo neb treatments three times daily. Continue home medications as prescribed. Scripts for Nebulizer machine- you will need to take this to the closest DME store to obtain Machine. There is a [employer] supply company in [place], [place]. Script for repeat lab work- please get this done 1-2 days prior to your follow up visit with Dr. Renteria. Continue to follow with the coumadin clinic in [place], [place]. Please return to the Emergency Room if you experience any blood in urine, stool , dizziness/lightheadedness, weakness, fever >102, etc.
[2016-11-12] MEDS: IPRATROPIUM/ALBUTEROL (0.5MG/3MG) NEB INH PRN (13:04)
--- NOTE | 2016-11-12 14:33 | Medical Records Consult ---
CONSULTATION DATE: 11/09/2016. REFERRING PHYSICIAN: Jono Grey M.D. CONSULTING PHYSICIAN: Damien Méndez M.D. REASON FOR CONSULTATION: A history of deep venous thrombosis and pulmonary embolism, and the patient is on anticoagulation. However, he has hematuria and recommendation for anticoagulation was the reason for consultation. HISTORY OF PRESENTING ILLNESS: Mr. Martinez is a 71-year-old gentleman who is from [place]. He has been living in a mobile home for the last 16 years since his skilled nursing. However, he has been in [place] since March of 2016 because of his family and his granddaughter being in [place]. Mr. Martinez was diagnosed with right lower extremity extensive deep venous thrombosis back in March of 2016. At that time he had a questionable pulmonary embolism as well, and he was started on Xarelto. However, in June of 2016, he was readmitted and a right lower extremity venous duplex was performed. 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 Because of this finding, the Xarelto was thought to be not adequately anticoagulating the patient. Therefore, the patient was switched over to Warfarin. He has been on Warfarin therapy since then. The patient has not been feeling well for the last couple of days and has been having fevers and chills. He was brought into the emergency department yesterday, and he had an altered mental status and also had high-grade fevers and chills. He started having hematuria yesterday, and that led to a consultation with Cardiology for recommendations regarding anticoagulation. PAST MEDICAL HISTORY: His past medical history is significant for obstructive sleep apnea, deep venous thrombosis, pulmonary embolism, hyperlipidemia. MEDICATIONS: His home medications include: Librium 10 mg daily, fenofibrate 145 mg daily, Lidoderm patch, omeprazole 40 mg p.o. daily, oxycodone/ acetaminophen 10/325 mg p.o. q. eight hours p.r.n., Seroquel 100 mg p.o. q. h.s. , ranitidine 300 mg p.o. daily, fish oil 300 mg p.o. daily, Warfarin 5 mg p.o. daily, albuterol inhaler p.r.n. ALLERGIES: The patient is allergic to Compazine. SOCIAL HISTORY: The patient denies any tobacco use or any illicit drug use. REVIEW OF SYSTEMS: He is complaining of fever and chills as explained in the history of present illness. He denies any eye pain, photophobia, or vision changes. He denies any hearing loss or dizziness. He denies any cough. He denies any palpitations or chest pain. He does not have any cold or heat intolerance. He denies any abdominal pain, constipation, or diarrhea. He denies any hematochezia or melena. He complains of hematuria as well as frequent urination. He denies any numbness or tingling or paresthesias. He is active in his extremities. PHYSICAL EXAMINATION: General: Mr. Martinez is a very pleasant 71-year-old gentleman slightly hard of hearing. He is alert and oriented x 3. Vital Signs: He has a blood pressure of 128/73 mmHg, a pulse of 110 beats per minute, a respiratory rate of 20, and a temperature of 100.7 degrees Fahrenheit. The patient is saturating at 94% on room air. HEENT: On examination he is normocephalic, atraumatic. The pupils are equal and reactive to light. The extraocular muscles are intact. Neck: The neck is supple. No thyromegaly. Cardiovascular: On cardiovascular examination he has normal S1 and S2. There is no jugular venous distension and no pedal edema. Respiratory: Examination reveals that the lungs are clear to auscultation bilaterally. Abdomen: The abdomen is soft and nontender. Neurological: Examination is nonfocal. LABORATORY DATA: Our laboratory data shows a white count of 7.8, hemoglobin of 13.2, and a hematocrit of 38.8. Platelet count is 222, sodium 141, potassium 4.2, chloride 106, C02 27.1. BUN 16, creatinine 1.4. Blood glucose is 116. PT is 30.4, INR is 2.69, troponin is less than 0.012. ASSESSMENT AND PLAN: 1. Hematuria. The patient has hematuria most likely secondary to a urinary tract infection. A urological consultation might be worthwhile. Continue management of urinary tract infection as per your recommendations. 2. A history of deep venous thrombosis and pulmonary embolism. The patient has a history of deep venous thrombosis and pulmonary embolism, and he has been on anticoagulation since March of 2016. The patient's deep venous thrombosis most likely occurred because of his prolonged travels. Since he has been on anticoagulation for longer than six months and currently has hematuria fairly significantly, I would recommend discontinuing the Warfarin and reversing it with 10 mg of Vitamin K orally. 3. I would also recommend doing a right lower extremity venous duplex, and if he does not have any residual thrombosis, then the anticoagulation will not need to be resumed. However, if he does have residual thrombosis, then we can consider resuming Warfarin after the hematuria is completely resolved. 4. The patient does not have any signs of postphlebitic syndrome and has no deep venous thrombosis. 5. The patient's altered mental status most likely was also because of his urinary tract infection. Currently the patient is alert and oriented times three and has a good memory as well. 6. No further cardiac work up is necessary at this time. 7. I will sign off. Please call with any questions. Thank you very much for involving us in the management of your patient. Damien Méndez M.D. Date Time JOB NUMBER: [id number] MTDD
== END 2016-11-12 13:18 | disposition home or self-care (01) | DRG 690 ==
LOC: ER 08:15 → MEDSURG 12:05
PROVIDERS: ADMIT Family Medicine; ATTEND Family Medicine
DX: N39.0 Urinary tract infection, site not specified (principal); N48.89 Other specified disorders of penis; N30.01 Acute cystitis with hematuria; D68.32 Hemorrhagic disorder due to extrinsic circulating anticoagulants; I82.501 Chronic embolism and thrombosis of unspecified deep veins of right lower extremity; I82.511 Chronic embolism and thrombosis of right femoral vein; B95.2 Enterococcus as the cause of diseases classified elsewhere; J40 Bronchitis, not specified as acute or chronic; Z78.9 Other specified health status; Z79.01 Long term (current) use of anticoagulants
CPT/HCPCS: 70450; 71020; 80048; 80053; 81001; 82550; 84484; 85025; 85610; 87040; 93005; 93010; 93041; 94760; 94761; 96361; 96365; 99223; 99233; 99239; 99285; J7030; J7512